=== PATIENT | female | born 1980 | race Caucasian/White ===

== ENCOUNTER 2022-06-08 10:51 | Emergency (ER) | payer OTHER ==
[2022-06-08 11:28] VITALS: BMI 27.8
[2022-06-08 13:20] VITALS: BP 105/84; PULSE 103; RESP 20; TEMP 98
== END 2022-06-08 14:50 | disposition home or self-care (01) ==
LOC: JERFT 10:51 → JER 10:51
DX: O98.513 Other viral diseases complicating pregnancy, third trimester (principal); U07.1 COVID-19; Z3A.38 38 weeks gestation of pregnancy
CPT/HCPCS: 0241U-QW; 99283-25

== ENCOUNTER 2022-06-27 08:30 | Inpatient (IN) | payer OTHER ==
[2022-06-27] MEDS ORDERED: BUPIVACAINE HCL/PF 0.25% (2.5MG/ML) 10 ML VIAL ONE (10:37)
[2022-06-27 10:44] VITALS: BMI 28.5
[2022-06-27] MEDS ORDERED: CITRIC ACID/SODIUM CITRATE 30 ML UNIT-DOSE CUP PO ONE (10:57)
[2022-06-27] MEDS ORDERED: ELECTROLYTE-148 SOLN 1,000 ML IV SCH ×2 (11:00)
[2022-06-27] MEDS ORDERED: PHENYLEPHRINE HCL 10 MG/1 ML SINGLE DOSE VIAL ONE (11:42)
[2022-06-27] MEDS ORDERED: morphine SULFATE/PF 1 MG/2 ML (2cc Syringe - QUVA) ONE (11:42)
[2022-06-27] MEDS ORDERED: ePHEDrine SULFATE 50 MG/1 ML AMPULE ONE ×2 (11:52→12:58)
[2022-06-27] MEDS ORDERED: ceFAZolin SODIUM 1 GM VIAL ONE ×2 (11:54)
[2022-06-27] MEDS ORDERED: OXYTOCIN 10 UNITS/ML VIAL ONE ×4 (12:12→12:58)
[2022-06-27] MEDS ORDERED: IBUPROFEN 600 MG TABLET (FP) PO PRN ×2 (13:15→13:37)
[2022-06-27] MEDS ORDERED: ACETAMINOPHEN 325 MG TABLET (FP) PO PRN (13:15)
[2022-06-27] MEDS ORDERED: ONDANSETRON 4 MG/2 ML VIAL IVPUSH PRN (13:15)
[2022-06-27] MEDS ORDERED: BENZOCAINE 28 GM HEMORRHOIDAL OINTMENT TP PRN (13:37)
[2022-06-27] MEDS ORDERED: WITCH HAZEL 50% (TUCKS) 40 PAD/JAR PAD TP PRN (13:37)
[2022-06-27] MEDS ORDERED: METHYLERGONOVINE MALEATE 0.2 MG/1 ML AMP IM PRN (13:37)
[2022-06-27] MEDS ORDERED: BENZOCAINE 20% 57 GM BOTTLE TP PRN (13:37)
[2022-06-27] MEDS: IBUPROFEN 800 MG/8 ML IJ IVPB PRN ×2 (14:00→22:29)
[2022-06-27] MEDS ORDERED: OXYTOCIN 20 UNITS in 0.9% NS 20 UNIT/1,000 ML INFUS.BAG IV ONE (14:47)
[2022-06-27] MEDS: OXYTOCIN 20 UNITS in 0.9% NS 20 UNIT/1,000 ML INFUS.BAG IV SCH ×2 (14:50→22:28)
[2022-06-27 16:03] VITALS: RESP 16
[2022-06-27] MEDS: SIMETHICONE 80 MG TAB.CHEW (FP) PO PRN (20:13)
[2022-06-28] MEDS ORDERED: oxyCODONE HCL 5 MG TABLET PO PRN ×2 (01:37)
[2022-06-28] MEDS: IBUPROFEN 800 MG/8 ML IJ IVPB PRN ×2 (06:57→19:49)
[2022-06-28 07:26] LABS: BASO % 0.4 % (0-2.0); EOS % 0.2 % (0-4.5); HEMATOCRIT 33.3 % (32.4-45.2); HEMOGLOBIN 10.7 GM/dL (10.7-15.3); MCH 27.6 pg (25.7-33.7); MCHC 32.2 g/dl (32.0-36.0); MEAN CELL VOLUME 85.6 fl (80-96); MEAN PLT VOLUME 8.7 fl (7.5-11.1); MONO % 7.8 % (3.8-10.2); NEUT % 72.6 % (42.8-82.8); PLATELET COUNT 216 10^3/uL (134-434); RBC 3.89 M/mm3 (3.60-5.2); RDW 15.4 % (11.6-15.6); WHITE BLOOD COUNT 11.3 K/mm3 (4.0-10.0)
[2022-06-28] MEDS ORDERED: FLU VACC QS2022-23(6MOS UP)/PF 60 MCG/0.5 ML SYRINGE IM ONE (10:00)
[2022-06-28] MEDS: ENOXAPARIN NA (PORCINE) 40 MG/0.4 ML DISP.SYRIN SQ SCH (10:46)
[2022-06-28] MEDS: PRENATAL VITAMINS W/ FOLIC ACID TABLET (FP) PO SCH (10:46)
[2022-06-28] MEDS ORDERED: OXYMETAZOLINE 0.05% NASAL SOLUTION 15 ML BOTTLE NS PRN (13:29)
[2022-06-28] MEDS ORDERED: BISACODYL 10 MG SUPP.RECT RC PRN (13:37)
[2022-06-28] MEDS: SIMETHICONE 80 MG TAB.CHEW (FP) PO PRN ×2 (14:33→19:49)
[2022-06-28] MEDS: ACETAMINOPHEN 325 MG TABLET (FP) PO PRN (14:33)
[2022-06-28] MEDS: SENNOSIDES/DOCUSATE COMBO (SENNA PLUS) TABLET (UD) PO PRN (19:49)
[2022-06-29] MEDS: ACETAMINOPHEN 325 MG TABLET (FP) PO PRN (05:38)
[2022-06-29] MEDS: ENOXAPARIN NA (PORCINE) 40 MG/0.4 ML DISP.SYRIN SQ SCH (09:17)
[2022-06-29] MEDS: PRENATAL VITAMINS W/ FOLIC ACID TABLET (FP) PO SCH (09:17)
[2022-06-29] MEDS: SIMETHICONE 80 MG TAB.CHEW (FP) PO PRN ×2 (12:29→21:09)
[2022-06-29] MEDS: IBUPROFEN 600 MG TABLET (FP) PO PRN ×3 (12:30→22:35)
[2022-06-29] MEDS: SENNOSIDES/DOCUSATE COMBO (SENNA PLUS) TABLET (UD) PO PRN (21:08)
[2022-06-30] MEDS: SIMETHICONE 80 MG TAB.CHEW (FP) PO PRN (02:11)
[2022-06-30] MEDS: IBUPROFEN 600 MG TABLET (FP) PO PRN ×2 (02:12→07:56)
[2022-06-30] MEDS: ENOXAPARIN NA (PORCINE) 40 MG/0.4 ML DISP.SYRIN SQ SCH (09:07)
[2022-06-30] MEDS: PRENATAL VITAMINS W/ FOLIC ACID TABLET (FP) PO SCH (09:07)
[2022-06-30 09:28] LABS: BASO % 0.3 % (0-2.0); EOS % 1.5 % (0-4.5); HEMATOCRIT 37.4 % (32.4-45.2); LYMPH % 19.1 % (8-40); MCH 27.6 pg (25.7-33.7); MEAN CELL VOLUME 86.1 fl (80-96); MEAN PLT VOLUME 8.4 fl (7.5-11.1); MONO % 5.6 % (3.8-10.2); NEUT % 73.5 % (42.8-82.8); PLATELET COUNT 260 10^3/uL (134-434); RBC 4.35 M/mm3 (3.60-5.2); RDW 15.6 % (11.6-15.6); WHITE BLOOD COUNT 10.7 K/mm3 (4.0-10.0)
[2022-06-30 09:47] VITALS: BP 110/77; PULSE 77; TEMP 97.4
== END 2022-06-30 14:35 | disposition home or self-care (01) | DRG 540 ==
LOC: JLDR 08:30 → EDUNIT# 10:00 → J3W 14:45
PROVIDERS: ADMIT Obstetrics & Gynecology; ATTEND Obstetrics & Gynecology
PROC: 10D00Z1 Extraction of Products of Conception, Low, Open Approach (ICD-10-PCS; principal; 2022-06-27)
PROC: 0UT70ZZ Resection of Bilateral Fallopian Tubes, Open Approach (ICD-10-PCS; 2022-06-27)
DX: O34.219 Maternal care for unspecified type scar from previous cesarean delivery (principal); Z3A.39 39 weeks gestation of pregnancy; Z37.0 Single live birth; Z30.2 Encounter for sterilization
CPT/HCPCS: 36415; 80048; 85025; 85610; 85730; 86780; 86850; 86900; 86901; 88302-TC; 88307-TC; C9803-CS; G0008; Q2036; U0003; U0005